=== PATIENT | male | born 1960 | race Caucasian/White ===

== ENCOUNTER 2018-04-11 08:13 | Observation (INO) | payer BC ==
[~2018-04-11] VITALS: Ht 172.7 cm; Wt 72.5 kg
[2018-04-11] MEDS ORDERED: FENTANYL CITRATE PF 50 MCG/1 ML 2ML VIAL ONE (09:00)
[2018-04-11] MEDS ORDERED: AMLO5TAB2 PO (11:57)
[2018-04-11] MEDS ORDERED: LOSA100T29 PO (11:57)
[2018-04-11 12:00] VITALS: BP 162/99
[2018-04-11] MEDS: HYDROCODONE/ACETAMINOPHEN 10/325 MG TAB PO SCH ×4 (12:28→21:02)
[2018-04-11] MEDS ORDERED: HYDRALAZINE HCL 20 MG/ML VIAL IV PRN ×2 (13:30→17:00)
[2018-04-11] MEDS: HYDROMORPHONE 1 MG/1 ML AMP IVP PRN ×2 (13:39→20:01)
[2018-04-11 16:30] VITALS: BP 148/104
[2018-04-11] MEDS ORDERED: MORPHINE SULFATE 2 MG/ML 1ML SYG IM PRN (17:00)
[2018-04-11] MEDS ORDERED: ONDANSETRON HCL MDV 20ML 2 MG/ML VIAL IVP PRN (17:00)
[2018-04-11] MEDS ORDERED: ACETAMINOPHEN 325 MG TAB PO PRN (17:00)
[2018-04-11 17:17] LABS: HEMATOCRIT 40.9 % (42-54); MEAN CORPUSCULAR HEMOGLOBIN 30.9 pg (27.0-33.0); MEAN CORPUSCULAR HGB CONC 33.2 g/dL (32.0-36.0); PLATELET COUNT (AUTO) 263 K/uL (130-400); RED CELL DISTRIBUTION WIDTH 12.4 % (11.0-15.5); WHITE BLOOD COUNT (AUTO) 9.8 K/uL (4.8-10.8)
[2018-04-11 17:33] LABS: ALANINE AMINOTRANSFERASE 23 U/L (12-78); ALBUMIN 3.9 g/dL (3.5-5.0); ALCOHOL, BLOOD < 3 mg/dL (0-10); ASPARTATE AMINOTRANSFERASE 19 U/L (10-37); BILIRUBIN,TOTAL 0.6 mg/dL (0.2-1.0); CARBON DIOXIDE 31 mmol/L (21-32); CHLORIDE 97 mmol/L (101-111); CREATININE 1.1 mg/dL (0.5-1.5); GLOMERULAR FILTR. RATE CALC 74 mL/min (>60); GLUCOSE,RANDOM 140 mg/dL (70-105); POTASSIUM 3.4 mmol/L (3.5-5.1); SODIUM SERUM 136 mmol/L (136-145); TOTAL PROTEIN, SERUM 7.6 g/dL (6.0-8.3); UREA NITROGEN, BLOOD 12 mg/dL (7-18)
[2018-04-11 17:39] LABS: BAND NEUTROPHILS % (MANUAL) 2 % (0-2); BASOPHILS % (MANUAL) 1 % (0-2); EOSINOPHILS % (MANUAL) 1 % (1-6); LYMPHOCYTES % (MANUAL) 9 % (22-44); MAN.DIFF COMMENT-IMPRESSION MANUAL DIFFERENTIAL; MONOCYTES % (MANUAL) 9 % (2-9); PLATELET MORPHOLOGY COMMENT ADEQUATE; SEGMENTED NEUTROPHILS % 78 % (40-70)
[2018-04-11] MEDS ORDERED: ONDANSETRON HCL 4 MG/2 ML VIAL IVP PRN (17:47)
[2018-04-11] MEDS ORDERED: SODIUM CHLORIDE 0.9% 10 ML VIAL IVP PRN (19:00)
[2018-04-11 20:00] VITALS: BP 148/104
[2018-04-11 20:56] VITALS: BP 141/99
[2018-04-11 23:36] VITALS: BP 141/87
[2018-04-12] MEDS: HYDROMORPHONE 1 MG/1 ML AMP IVP PRN (00:06)
[2018-04-12] MEDS: HYDROCODONE/ACETAMINOPHEN 10/325 MG TAB PO SCH ×3 (01:18→08:37)
[2018-04-12 03:14] VITALS: BP 132/90
[2018-04-12 05:36] LABS: MEAN CORPUSCULAR HEMOGLOBIN 31.7 pg (27.0-33.0); MEAN CORPUSCULAR HGB CONC 34.2 g/dL (32.0-36.0); MEAN CORPUSCULAR VOLUME 92.8 fL (79-99); PLATELET COUNT (AUTO) 243 K/uL (130-400); RED BLOOD CELL COUNT(AUTO) 3.99 MIL/uL (4.50-6.20); RED CELL DISTRIBUTION WIDTH 12.5 % (11.0-15.5); WHITE BLOOD COUNT (AUTO) 9.5 K/uL (4.8-10.8)
[2018-04-12 05:51] LABS: CREATININE 1.1 mg/dL (0.5-1.5); POTASSIUM 4.3 mmol/L (3.5-5.1)
[2018-04-12 07:36] VITALS: BP 123/72
[2018-04-12] MEDS ORDERED: FAMOTIDINE 20MG TAB 20 MG TAB PO SCH (08:00)
[2018-04-12] MEDS ORDERED: AMLODIPINE BESYLATE 5 MG TAB PO SCH (09:00)
[2018-04-12] MEDS ORDERED: PANTOPRAZOLE SODIUM 40 MG TABLET.DR PO SCH (09:00)
[2018-04-12] MEDS ORDERED: LOSARTAN 100 MG TABLET PO SCH (09:00)
[2018-04-12 11:00] VITALS: BP 144/95
[2018-04-12] MEDS ORDERED: PANT40TA PO (11:45)
== END 2018-04-12 12:49 | disposition home or self-care (01) ==
LOC: EDH 08:13 → EDHIP 10:30 → 4AH 10:47
PROVIDERS: ADMIT Internal Medicine Nephrology; ATTEND Internal Medicine Nephrology
DX: S92.001A Unspecified fracture of right calcaneus, initial encounter for closed fracture (principal); F10.20 Alcohol dependence, uncomplicated; W11.XXXA Fall on and from ladder, initial encounter; Y93.89 Activity, other specified; Y92.009 Unspecified place in unspecified non-institutional (private) residence as the place of occurrence of the external cause; Y99.8 Other external cause status; I10 Essential (primary) hypertension
CPT/HCPCS: 29515; 36415 ×2; 73610; 73650; 73700; 80048; 80053; 85025; 85027; 96372; 96374; 96375; 96376 ×2; 97116; 97161; 99285; G0378 ×26; G0480; G8978; G8979; G8980; G8981; G8982; G8983; J0360; J1170 ×3; J2405; J3010

== ENCOUNTER 2018-04-16 15:00 | Observation (INO) | payer BC ==
[~2018-04-16] VITALS: Ht 172.7 cm; Wt 78.0 kg
[~2018-04-16 15:00] MED LIST: AMLO5TAB2 PO; PANT40TA PO
[2018-04-16 15:51] VITALS: BP 123/91
[2018-04-16 15:55] LABS: EOSINOPHILS % (AUTO) 9.9 % (0.0-8.0); MEAN CORPUSCULAR HEMOGLOBIN 31.7 pg (27.0-33.0); MEAN CORPUSCULAR VOLUME 93.3 fL (79-99); MONOCYTES % (AUTO) 10.7 % (3.0-13.0); NEUTROPHILS % (AUTO) 63.4 % (40.0-77.0); PLATELET COUNT (AUTO) 349 K/uL (130-400); RED BLOOD CELL COUNT(AUTO) 4.18 MIL/uL (4.50-6.20); RED CELL DISTRIBUTION WIDTH 12.4 % (11.0-15.5); WHITE BLOOD COUNT (AUTO) 6.8 K/uL (4.8-10.8)
[2018-04-16 16:09] LABS: CREATININE 1.3 mg/dL (0.5-1.5); POTASSIUM 4.6 mmol/L (3.5-5.1)
[2018-04-16] MEDS ORDERED: LOSA1TAB42 PO (16:20)
[2018-04-16] MEDS ORDERED: AMLO5TAB2 PO (16:20)
[2018-04-16] MEDS ORDERED: TRAM50TA4 PO (16:20)
[2018-04-16] MEDS ORDERED: DOCU50CA13 PO (16:20)
[2018-04-16] MEDS ORDERED: HYDR-4068 PO (16:20)
[2018-04-16] MEDS ORDERED: ONDA4TAB4 PO (16:20)
[2018-04-17] VITALS (26 sets, daily range): BP systolic 108–189; BP diastolic 55–110
[2018-04-17] MEDS: CEFAZOLIN SODIUM 1 GM VIAL IVP SCH ×3 (10:00→23:33)
[2018-04-17] MEDS ORDERED: LACTATED RINGERS 1000ML 1,000 ML IV ONE (10:07)
[2018-04-17] MEDS ORDERED: MEPERIDINE-PF 50 MG/ML SYG ONE (13:14)
[2018-04-17] MEDS ORDERED: SUCCINYLCHOLINE 200MG/10ML SYR ONE (13:39)
[2018-04-17] MEDS ORDERED: LIDOCAINE PF 2% 5ML ABBOJECT ONE (13:39)
[2018-04-17] MEDS ORDERED: ONDANSETRON HCL 4 MG/2 ML VIAL ONE ×2 (13:39→18:49)
[2018-04-17] MEDS ORDERED: NEOSTIGMINE 5MG/5ML SYR IV ONE (13:39)
[2018-04-17] MEDS ORDERED: DEXAMETHASONE SOD PHOSPHATE 10MG/ML 1ML VIAL ONE (13:39)
[2018-04-17] MEDS ORDERED: PROPOFOL 10 MG/ML 20ML VIAL IV ONE (13:40)
[2018-04-17] MEDS ORDERED: MIDAZOLAM HCL 1 MG/ML 2ML VIAL ONE (13:41)
[2018-04-17] MEDS ORDERED: FENTANYL CITRATE PF 50 MCG/1 ML 2ML VIAL ONE ×3 (13:41→15:05)
[2018-04-17] MEDS ORDERED: CEFAZOLIN SODIUM 1 GM VIAL ONE ×2 (14:24→16:47)
[2018-04-17] MEDS ORDERED: SODIUM CHLORIDE 0.9% 1000ML 1,000 ML IV SCH (17:25)
[2018-04-17] MEDS ORDERED: KETOROLAC TROMETHAMINE 30MG/ML IV PRN (17:30)
[2018-04-17] MEDS ORDERED: FERROUS FUMARATE 324 MG TABLET PO PRN (17:30)
[2018-04-17] MEDS ORDERED: DIPHENHYDRAMINE HCL 25 MG CAPSULE PO PRN (17:30)
[2018-04-17] MEDS ORDERED: DiphenhydrAMINE HCL 50 MG/ML VIAL IVP PRN (17:30)
[2018-04-17] MEDS ORDERED: HYDROCODONE/ACETAMINOPHEN 5/325 MG TAB PO PRN ×2 (17:30)
[2018-04-17] MEDS ORDERED: TEMAZEPAM 15 MG CAPSULE PO PRN (17:30)
[2018-04-17] MEDS ORDERED: PROMETHAZINE HCL 25 MG/ML 1ML AMPULE IM PRN (17:30)
[2018-04-17] MEDS ORDERED: MEPERIDINE-PF 25 MG/ML SYG ONE ×2 (18:00→18:09)
[2018-04-17] MEDS ORDERED: HYDRALAZINE HCL 20 MG/ML VIAL ONE (18:18)
[2018-04-17] MEDS ORDERED: KETOROLAC TROMETHAMINE 30MG/ML ONE (18:40)
[2018-04-17] MEDS ORDERED: HYDROCODONE/ACETAMINOPHEN 10/325 MG TAB PO PRN (20:00)
[2018-04-17] MEDS ORDERED: ONDANSETRON 4 MG TABLET PO PRN (20:00)
[2018-04-17] MEDS: CELECOXIB 200 MG CAP PO SCH (20:14)
[2018-04-17] MEDS: PREGABALIN 25 MG CAP PO SCH (20:15)
[2018-04-17] MEDS: FAMOTIDINE 20MG TAB 20 MG TAB PO SCH (20:15)
[2018-04-17] MEDS ORDERED: TRAMADOL HCL 50 MG TABLET PO SCH (21:00)
[2018-04-17] MEDS ORDERED: HYDROMORPHONE PCA 10 MG/50 ML 50 ML IV ONE (21:56)
[2018-04-17] MEDS ORDERED: NALOXONE HCL 0.4 MG/1 ML ML IVP PRN (22:00)
[2018-04-17] MEDS ORDERED: HYDROMORPHONE PCA 10 MG/50 ML 50 ML IV PRN (22:00)
[2018-04-17] MEDS ORDERED: ONDANSETRON HCL 4 MG/2 ML VIAL IV PRN (22:00)
[2018-04-17] MEDS ORDERED: CEFAZOLIN 2GM / 50 ML 50 ML IV SCH (22:30)
[2018-04-18] VITALS: BP 115/77
[2018-04-18] MEDS ORDERED: TRAMADOL HCL 50 MG TABLET PO PRN
[2018-04-18 01:00] VITALS: BP 118/77
[2018-04-18 04:00] VITALS: BP 111/59
[2018-04-18] MEDS: CEFAZOLIN SODIUM 1 GM VIAL IVP SCH (05:53)
[2018-04-18] MEDS: FAMOTIDINE 20MG TAB 20 MG TAB PO SCH (08:27)
[2018-04-18] MEDS: CELECOXIB 200 MG CAP PO SCH (08:27)
[2018-04-18] MEDS: PREGABALIN 25 MG CAP PO SCH (08:27)
[2018-04-18 08:29] VITALS: BP 125/85
[2018-04-18] MEDS ORDERED: POLYETHYLENE GLYCOL 3350 17 GM POWD.PACK PO SCH (09:00)
[2018-04-18] MEDS ORDERED: AMLODIPINE BESYLATE 5 MG TAB PO SCH (09:00)
[2018-04-18] MEDS ORDERED: PANTOPRAZOLE SODIUM 40 MG TABLET.DR PO SCH (09:00)
[2018-04-18] MEDS ORDERED: DOCUSATE SODIUM 100 MG CAP PO SCH (09:00)
[2018-04-18] MEDS ORDERED: TAMSULOSIN HCL 0.4 MG CAP.ER.24H PO SCH (09:00)
[2018-04-18] MEDS ORDERED: ENOXAPARIN SODIUM 40 MG/0.4 ML SYRINGE SQ SCH (09:00)
[2018-04-18] MEDS ORDERED: HYDR-309 PO (11:07)
[2018-04-18 11:35] VITALS: BP 129/75
== END 2018-04-18 12:35 | disposition home or self-care (01) ==
LOC: DAHIP 04-17 08:52 → EDSTATUS 04-17 15:00 → 4AH 04-17 19:30
PROVIDERS: ADMIT Orthopaedic Surgery; ATTEND Orthopaedic Surgery
DX: S92.001A Unspecified fracture of right calcaneus, initial encounter for closed fracture (principal); I10 Essential (primary) hypertension; W11.XXXA Fall on and from ladder, initial encounter; Y93.89 Activity, other specified; Y92.89 Other specified places as the place of occurrence of the external cause; Y99.8 Other external cause status; Z79.899 Other long term (current) drug therapy
CPT/HCPCS: 28415; 36415; 76000; 80048; 85025; 88307; 88311; 96372; 96374; 96376; A4218 ×3; A4649 ×2; A4930 ×2; A6223; C1713 ×6; C1776; G0378 ×29; J0330; J0360; J0690 ×5; J1100; J1170; J1650; J1885 ×2; J2001; J2175 ×3; J2250; J2405 ×2; J2704; J2710; J3010 ×3; J7030 ×2; J7120 ×2; Q4051